=== PATIENT | male | born 1940 | race Caucasian/White ===

== ENCOUNTER 2017-08-29 20:05 | Emergency (ER) | payer OTHER, BC ==
[~2017-08-29] VITALS: Ht 177.8 cm; Wt 75.5 kg
[2017-08-29 21:08] LABS: HEMATOCRIT 43.4 % (38.0-50.0); HEMOGLOBIN 15.4 G/DL (12.5-16.6); MCH 31.4 PG (29.0-34.0); MCHC 35.5 G/DL (30.0-36.0); MCV 88.6 FL (86-99); PLATELET COUNT 248 K/uL (156-360); RBC DIS.WIDTH-CV 13.9 % (11.8-14.6); RBC DIS.WIDTH-SD 44.9 % (39-53); WHITE BLOOD COUNT 10.2 K/uL (4.1-10.2)
[2017-08-29 21:18] LABS: ALBUMIN 4.1 g/dL (3.2-4.8)
[2017-08-29 21:19] LABS: CHLORIDE 107 mEq/L (99-109); POTASSIUM 3.9 mEq/L (3.7-5.4); SODIUM 140 mEq/L (136-147)
[2017-08-29 21:21] LABS: GLUCOSE 127 mg/dL (70-99)
[2017-08-29 21:23] LABS: TOTAL BILIRUBIN 0.5 mg/dL (0.0-1.0)
[2017-08-29 21:24] LABS: ALKALINE PHOSPHATASE 89 IU/L (3-129)
[2017-08-29 21:25] LABS: CREATININE 1.2 mg/dL (0.6-1.3); GFR ESTIMATE (CALCULATED) > 59 mL/min/ (58.99-99999)
[2017-08-29 21:26] LABS: AST (GOT) 18 IU/L (2-34); UREA NITROGEN (BUN) 23 mg/dL (9-23)
[2017-08-29 21:28] LABS: ALT (GPT) 15 IU/L (3-49)
[2017-08-30 00:26] LABS: APPEARANCE CLEAR ((CLEAR)); BILIRUBIN NEGATIVE; BLOOD NEGATIVE; COLOR YELLOW ((YELLOW)); GLUCOSE (STRIP) NEGATIVE; KETONES 5; LEUKOCYTES NEGATIVE; NITRITE NEGATIVE; PROTEIN (STRIP) NEGATIVE; SPECIFIC GRAVITY 1.054 (1.000-1.030); UCUL ADDED? NO; UROBILINOGEN 0.2 MG/DL (0.2-1.0)
[2017-08-30 01:35] VITALS: BP 102/69
== END 2017-08-30 01:38 | disposition short-term general hospital (02) ==
LOC: EME 20:05
PROVIDERS: Physician Assistant
PROC: 2W3RX1Z Immobilization of Left Lower Leg using Splint (ICD-10-PCS; principal; 2017-08-30)
DX: S30.0XXA Contusion of lower back and pelvis, initial encounter (principal); R58 Hemorrhage, not elsewhere classified; S82.65XA Nondisplaced fracture of lateral malleolus of left fibula, initial encounter for closed fracture; W20.8XXA Other cause of strike by thrown, projected or falling object, initial encounter; W01.198A Fall on same level from slipping, tripping and stumbling with subsequent striking against other object, initial encounter; Y93.H2 Activity, gardening and landscaping; I10 Essential (primary) hypertension; E03.9 Hypothyroidism, unspecified; E78.00 Pure hypercholesterolemia, unspecified; F17.220 Nicotine dependence, chewing tobacco, uncomplicated; Z90.49 Acquired absence of other specified parts of digestive tract
CPT/HCPCS: 73610; 74177; 80053; 81003; 85027; 85610; 85730; 86850; 86900; 86901; 99281; 99285; J2405; J3010